=== PATIENT | male | born 1995 | race African-American/Black ===

== ENCOUNTER 2020-12-09 14:44 | Emergency (ER) | payer BC ==
[~2020-12-09] VITALS: Ht 182.9 cm; Wt 79.4 kg
[2020-12-09] MEDS ORDERED: MOBIC7.5 MG PO (17:13)
[2020-12-09 17:17] VITALS: BP 115/67
[2020-12-09] MEDS ORDERED: CORTISPORIN OTI10 M2 OTIC (17:20)
== END 2020-12-09 17:26 | disposition home or self-care (01) ==
LOC: ER 14:44
DX: R51.9 Headache, unspecified (principal)